=== PATIENT | female | born 1970 | race American Indian/Alaskan Native ===

== ENCOUNTER 2020-04-18 06:56 | Day surgery (SDC) | payer MEDICAID, MEDICARE ==
[2020-04-18] MEDS ORDERED: SODIUM CHLORIDE 0.9% 500 ML 500 ML ONE (07:32)
[2020-04-18] MEDS ORDERED: ASPIRIN EC 325 MG TAB PO ONE ×2 (07:32→07:53)
[2020-04-18] MEDS ORDERED: SODIUM CHLORIDE 0.9% 500 ML 500 ML IV SCH (08:00)
[2020-04-18 08:06] LABS: Basophils % (Auto) 0.5 % (0.0-1.8); Eosinophils % (Auto) 0.7 % (0.0-4.3); Hematocrit 32.7 % (30.3-42.9); Hemoglobin 10.4 gm/dl (10.1-14.3); Lymphocytes # (Auto) 1.1 K/mm3 (1.2-5.4); Lymphocytes % (Auto) 16.1 % (13.4-35.0); Mean Corpuscular HGB Conc 32 % (30-34); Mean Corpuscular Volume 80 fl (79-97); Monocytes # (Auto) 0.6 K/mm3 (0.0-0.8); Platelet Count 239 K/mm3 (140-440); Red Blood Count 4.08 M/mm3 (3.65-5.03)
[2020-04-18 08:07] LABS: Red Cell Distribution Width 20.3 % (13.2-15.2)
[2020-04-18 08:17] LABS: INR 1.37 (0.87-1.13)
[2020-04-18] MEDS ORDERED: MIDAZOLAM 2 MG/2 ML INJ ONE (08:17)
[2020-04-18] MEDS ORDERED: NITROGLYCERIN SYRINGE 3 ML ONE (08:18)
[2020-04-18] MEDS ORDERED: HEPARIN/NS 5000 UNIT/500ML 1,000 ML IR ONE (08:18)
[2020-04-18] MEDS ORDERED: VERAPAMIL 5 MG/2 ML INJ ONE (08:18)
[2020-04-18] MEDS ORDERED: HEPARIN 10,000 UNITS/10 ML VIAL ONE (08:18)
[2020-04-18 08:43] LABS: Calcium 9.4 mg/dL (8.4-10.2)
[2020-04-18] MEDS: fentaNYL 100 MCG/2 ML INJ ONE ×2 (09:12→09:18)
[2020-04-18] MEDS: LIDOCAINE (2%) 20 MG/1 ML VIAL 20 ML MDV INFILTRATI ONE ×2 (09:13→09:25)
[2020-04-18] MEDS ORDERED: hydrALAZINE 20 MG/1 ML INJ ONE (09:28)
[2020-04-18] MEDS ORDERED: METOPROLOL TARTRATE 5 MG/5 ML INJ IV ONE (09:30)
--- NOTE | 2020-04-18 10:15 | Cardiac Catherization Report ---
CLINICAL INFORMATION: This is a 50-year-old -[place] female with morbid obesity, hypertension, hyperlipidemia, severe LV dysfunction, is here for left heart catheterization for ischemic evaluation cardiomyopathy, was done with moderate sedation started 9:12 and finished at 9:33, 21 minutes of moderate sedation. Procedure was initially tried the right radial artery and will get access was performed via the right femoral artery, sterile technique, local anesthesia, 5-Uzbek groin sheath inserted. Left system engaged with JL3.5 catheter. Left main is large and patent, bifurcates into large LAD that wrapped around LAD patent, diagonal medium caliber and patent. Circumflex is a medium caliber and patent. OM1, medium caliber vessel that is patent with a high OM1 that medium caliber, moderate tortuosity, patent. OM2 is medium caliber vessel, patent. OM3 is a medium caliber vessel, patent. RCA engaged with JR4, is a large dominant vessel, is patent from proximally and distally. PDA, PLV are medium caliber and patent. LV gram done in [place] shows severe LV dysfunction appeared 30 mmHg, LV is 174. Aortic is 174/111, no gradient across the aortic valve on pullback. 5-Uzbek catheters all taken over guidewire, 5-Uzbek groin sheath was discontinued. Manual pressure held. No hematoma, no bleeding. SUMMARY: Left main patent, LAD patent, circumflex patent, OM1, 2 and 3 medium caliber, patent with moderate to severe tortuosity of vessels. RCA large, dominant, patent with severe LV dysfunction, nonischemic cardiomyopathy. Continue risk factor modification. [facility]# [id number] TYRELL/ALICIA
[2020-04-18] MEDS ORDERED: HYDROcodone/ACETAMINOPHEN 5-325 MG TAB PO PRN (11:28)
[2020-04-18] MEDS ORDERED: traMADol 50 MG TAB PO PRN (11:28)
--- NOTE | 2020-04-18 11:33 | Short Stay Summary ---
Short Stay Documentation Date of service: 04/18/20 - History H&P: obtained from office - Allergies and Medications Current Medications: Allergies No Known Allergies Allergy (Verified 04/18/20 07:26) Home Medications Medication Instructions Recorded Confirmed Last Taken Type Apixaban [Eliquis] 5 mg PO BID 04/18/20 04/18/20 04/17/20 History 5 mg Entresto 49-51 mg 97 mg PO BID 04/18/20 04/18/20 04/18/20 History 97mg-103mg Furosemide [Lasix TAB] 40 mg PO DAILY 04/18/20 04/18/20 04/17/20 History 40 mg Meclizine [Antivert] 25 mg PO TID PRN 04/18/20 04/18/20 04/17/20 History 25 mg Potassium Chloride [K-Dur] 10 meq PO BID 04/18/20 04/18/20 04/17/20 History 10 meq Spironolactone [Aldactone] 25 mg PO DAILY 04/18/20 04/18/20 04/17/20 History 25 mg carvediloL [Coreg] 25 mg PO BID 04/18/20 04/18/20 04/18/20 History 25 mg hydrALAZINE [Apresoline TAB] 100 mg PO BID 04/18/20 04/18/20 04/17/20 History 100 mg Active Medications Hydrocodone Bitart/Acetaminophen (Hydrocodone/Acetaminophen 5-325 Mg Tab) 1 each PO Q4H PRN PRN Reason: Pain, Moderate (4-6) Sodium Chloride (Nacl 0.9% 500 Ml) 500 mls @ 50 mls/hr IV DIRECT MAGDIEL Stop: 04/18/20 17:59 Last Admin: 04/18/20 08:49 Dose: 50 mls/hr Documented by: Tramadol HCl (Tramadol 50 Mg Tab) 50 mg PO Q4H PRN PRN Reason: Pain, Mild (1-3) - Brief post op/procedure progress note Date of procedure: 04/18/20 Pre-op diagnosis: cardiomyopathy Post-op diagnosis: same Procedure: see report Anesthesia: local Estimated blood loss: none Pathology: none - Disposition Condition at discharge: Good Disposition: [id number] TO HOME OR SELFCARE - Discharge Diagnoses (1) Morbid obesity Status: Chronic (2) Hypertension Status: Chronic Qualifiers: Hypertension type: essential hypertension Qualified Code(s): I10 - Essential (primary) hypertension (3) Paroxysmal A-fib Status: Chronic (4) Hyperlipemia, mixed Status: Chronic (5) Cardiomyopathy Status: Chronic Qualifiers: Cardiomyopathy type: dilated Qualified Code(s): I42.0 - Dilated cardiomyopathy Short Stay Discharge Plan Activity: advance as tolerated Diet: low fat, low cholesterol, low salt Wound: keep clean and dry Follow up with: JOSE LAU MD [Primary Care Provider] - 7 Days
[2020-04-18 13:42] VITALS: BP 166/97
== END 2020-04-18 14:25 | disposition home or self-care (01) ==
LOC: CATHLABREC 06:56
PROVIDERS: ATTEND Internal Medicine
DX: I42.0 Dilated cardiomyopathy (principal); I11.0 Hypertensive heart disease with heart failure; I50.23 Acute on chronic systolic (congestive) heart failure; I34.0 Nonrheumatic mitral (valve) insufficiency; E78.2 Mixed hyperlipidemia; E66.01 Morbid (severe) obesity due to excess calories; M19.90 Unspecified osteoarthritis, unspecified site; F32.9 Major depressive disorder, single episode, unspecified; F41.9 Anxiety disorder, unspecified; Z79.899 Other long term (current) drug therapy; Z68.43 Body mass index [BMI] 50.0-59.9, adult; Z98.890 Other specified postprocedural states
CPT/HCPCS: 36415; 80048; 85025; 85610; 85730; 93005; 93458; 99156; C1894; J0360; J1644; J2250; J3010; J7040; Q9967